=== PATIENT | female | born 1930 | race Caucasian/White ===

== ENCOUNTER 2018-12-20 10:29 | Emergency (ER) | payer OTHER ==
[2018-12-20 12:12] VITALS: TEMP 98.3; BMI 19.5
--- NOTE | 2018-12-20 12:26 | PDOC ---
History of Present Illness - General Stated Complaint: R/O STONES,AMS Time Seen by Provider: 12/20/18 11:02 History Source: Family Exam Limitations: Dementia - History of Present Illness Initial Comments: 12/20/18 12:17 88YOF with h/o dementia, recurrent UTI (usually gets ciprofloxacin), HLD, HTN, vertigo (on meclizine), esophageal internal bleeding which was tx with a botox injection 2 years ago without recurrence, HYST back in the , and knee replacement, and Seroquel use for nighttime agitation, who was BIBEMS from [facility] for failed outpatient therapy for UTI now with c/f bilateral renal stones and e/o renal dysfunction as found on US this morning at [facility]. She has had UTI sxs for the past 3 weeks (tx with an unknown antibiotic, then switched to Levaquin yesterday). Patient's history was taken entirely from her granddaughter Jessica (HCP) at [phone], as the patient is oriented only to her own name. The granddaughter notes that the patient has no advance directive on file that they know of. She notes that the family including HCP would be uncomfortable with lithotripsy or any surgical procedure. Past History - Past Medical History Allergies/Adverse Reactions: Allergies Allergy/AdvReac Type Severity Reaction Status Date / Time No Known Allergies Allergy Verified 12/20/18 12:09 COPD: No Dementia: Yes - Psycho Social/Smoking Cessation Hx Smoking History: Never smoked Have you smoked in the past 12 months: No Information on smoking cessation initiated: No Hx Alcohol Use: No Drug/Substance Use Hx: No Review of Systems - Review of Systems Able to Perform ROS?: No (dementia) *Physical Exam - Vital Signs Last Vital Signs Temp Pulse Resp BP Pulse Ox 98.3 F 95 H 18 102/49 L 95 12/20/18 10:30 12/20/18 10:30 12/20/18 10:30 12/20/18 10:30 12/20/18 10:30 - Physical Exam Comments: GENERAL: elderly, a bit frail, nontoxic-appearing, sleepy, A/Ox1 (self), no distress, confused, later trying to get up from bed repeatedly for trips to and from the bathroom HEENT: PERRLA, EOMI, moist mucous membranes NECK/BACK: no midline ttp, no spinal stepoff or deformity, no hematoma, full ROM , neck supple CARDIOVASCULAR: regular rate/rhythm, normal S1S2, no MGR, strong peripheral pulses, capillary refill <2 seconds, extremities wwp, no edema LUNGS/RESPIRATORY: no respiratory distress, CTAB GI/ABDOMEN: symmetric [id number], normoactive BS, soft, moderate BLQ ttp, no midline pulsatile masses : no CVA tenderness EXTREMITIES: no acute deformity, no new bruising SKIN: warm and dry, no pallor, no jaundice, no rash, no bruising, no skin breakdown, no cuts, no lesions NEUROLOGICAL: GCS 15, CN II-XII grossly intact, 5/5 strength proximally and distally, no facial droop ED Treatment Course - LABORATORY CBC & Chemistry Diagram: 12/20/18 13:51 12/20/18 12:27 Medical Decision Making - Medical Decision Making 12/20/18 13:02 88YOF with recurrent UTI and dementia p/w painful urination for >3 weeks, failed OP abx course, now found with e/o renal dysfuction and b/l renal stones on US this AM. Initial Vital Signs Temp Pulse Resp BP Pulse Ox 98.3 F 95 H 18 102/49 L 95 12/20/18 10:30 12/20/18 10:30 12/20/18 10:30 12/20/18 10:30 12/20/18 10:30 Exam: As noted in Physical Exam section. DDX IBNLT: UTI, pyelonephritis, cervicitis, PID, TOA, other STD/STI, vaginal lesion, vulvuvaginal candidiasis, interstitial cystitis, neurogenic bladder, renal colic, obstructive uropathy, ectopic, ovarian torsion, ovarian cyst, endometritis, malignancy, hernia, appendicitis, proctitis, sigmoid diverticulitis wwo abscess or perforation, endometriosis, primary dysmenorrhea, etc. W/U ordered: Labs as noted below, EKG, CXR, TX ordered: 0.5mg Xanax PO as patient is agitated and granddaughter states she gets this in the hospital for agitation all the time. Laboratory Tests 12/20/18 12/20/18 12:27 13:51 WBC 6.4 RBC 3.16 L Hgb 9.8 L Hct 29.9 L MCV 94.7 MCH 30.9 MCHC 32.6 RDW 14.7 Plt Count 262 MPV 6.7 L Absolute Neuts (auto) 5.0 Neutrophils % 78.4 Lymphocytes % 13.4 Monocytes % 5.9 Eosinophils % 1.6 Basophils % 0.7 Nucleated RBC % 0 Sodium 137 Potassium 4.5 Chloride 103 Carbon Dioxide 27 Anion Gap 8 BUN 45.2 H Creatinine 2.3 H Est GFR (CKD-EPI)AfAm 21.13 Est GFR (CKD-EPI)NonAf 18.23 Random Glucose 115 H Calcium 9.4 Total Bilirubin 0.3 AST 13 L ALT 13 Alkaline Phosphatase 70 Total Protein 6.8 Albumin 2.6 L Patient is unable to sit still for spiral CT, needs to be brought back to the ED. She has already gotten Xanax toward the beginning of this visit. She will be given IM dose ketamine at 4 mg/kg, which is low side of normal range for procedural sedation/analgesia. Immediately after given this IM ketamine she will get her spiral CT and have urine cath for sample. Patient was given IM ketamine with partial improvement in her agitation. Straight cath, pelvic exam, and CT completed after ketamine administration. Pelvic with mild labia minora skin breakdown with tenderness, moderate foul- smelling vaginal discharge, no e/o trauma, no bruising, cervix cannot be visualized. GC/Chlamydia swabs sent. CT/ABDOMEN PELVIS CT W/O CONTR Abdomen and pelvis CT without contrast Clinical information: pelvic infection, abdominal pain Multiplanar imaging was performed. No intravenous or enteric contrast was administered. No prior imaging studies are available at this facility for direct comparison. There is no evidence of pneumoperitoneum, free intraperitoneal fluid or bowel obstruction. Diffuse concentric urinary bladder wall thickening is seen which may be on the basis of acute and/ or chronic cystitis. A small amount of air is seen within the urinary bladder lumen which may be on the basis of recent catheterization versus gas-forming infection. Clinical/laboratory correlation is suggested. Note is also made of several small densities within the urinary bladder lumen probably representing calculi. The planes surrounding the urinary bladder appear to be somewhat indistinct which may be on the basis of inflammation/infection, less likely neoplastic disease. There is also equivocal concentric wall thickening along the expected course of the urethra. Absent versus atrophic uterus. There is no obvious CT evidence of adnexal pathology. Mild nonspecific subcutaneous soft tissue stranding is seen along the peritoneum bilaterally. No soft tissue air/gas accumulation is visualized. Direct comparison with prior imaging studies would be helpful if available from a different facility. Multiple gallbladder calculi are noted. There is moderate gallbladder overdistention without obvious associated wall edema. No pericholecystic edema/fluid is visualized. There is no definite biliary tract dilatation. There is no hydronephrosis. 0.7 x 0.2 cm nonobstructing right renal calculus. Left renal atrophy (7.4 cm length). 5 cm left renal cortical cyst. The liver, pancreas, and right adrenal gland demonstrate no obvious noncontrast pathology. 5 cm left renal cortical cyst. There is no aortic aneurysm. No definite lymphadenopathy is seen. 1.3 cm left adrenal nodule probably representing an adenoma. 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 There is no splenic enlargement. The appendix is partially visualized and demonstrates no definite abnormality. No CT evidence of acute diverticulitis or obvious acute colitis. There is no gross noncontrast small bowel pathology. Surgical clips/sutures are noted along the anterior pelvic wall. Diffuse osteoporosis. IMPRESSION: Diffuse urinary bladder wall thickening is seen possibly on the basis of acute and/or chronic cystitis. A small amount of nonspecific air accumulation is noted within the urinary bladder which may be due to recent catheterization versus gas-forming infection. Clinical/laboratory correlation is suggested. The perivesical soft tissue planes appear to be somewhat indistinct on this noncontrast study which may be on the basis of acute inflammation/infection, less likely neoplastic disease. Small urinary bladder calculi. 0.7 x 0.2 cm nonobstructing right renal calculus. Left renal atrophy. There is equivocal concentric wall thickening along the expected course of the urethra. Mild nonspecific subcutaneous soft tissue stranding is seen along the peritoneum bilaterally which may be chronic or acute in nature. Correlate clinically. Absent versus atrophic uterus. Cholelithiasis. Moderate gallbladder overdistention is seen without definite CT evidence of acute cholecystitis. Early acute cholecystitis may not be demonstrable on CT. I spoke with Dr. Morales, the patient's PCP, who is updated on all results. He is most comfortable with her being treated for PID, vulvovaginal candidiasis , and UTI first dose abx and then being managed by him at her facility. Patient is given IM ceftriaxone and dose doxycycline as well as 200 mg Diflucan as she does have vaginal discharge and skin breakdown. On last reassessment, pain is reasonably controlled, and exam is benign. This patient is appropriate for discharge with close outpatient follow up. The SNF is comfortable with this plan and will follow up with their PCP at the facility. Specific return precautions are discussed and written in discharge instructions and they will come back to the ER if necessary. Discharge - Discharge Information Problems reviewed: Yes Clinical Impression/Diagnosis: Pelvic inflammatory disease (PID), Vulvovaginal candidiasis UTI (urinary tract infection) Qualifiers: Urinary tract infection type: acute cystitis Hematuria presence: with hematuria Qualified Code(s): N30.01 - Acute cystitis with hematuria Condition: Stable Disposition: [facility] - Admission No - Follow up/Referral Referrals: Melly Martinez MD [Primary Care Provider] - - Patient Discharge Instructions Additional Instructions: Dear Ms. Carter and family, Dr. Morales, and [facility] Staff: We provided care for Ms. Carter in the ED today. We are enclosing her blood work and CT abdomen/pelvis results. We were only able to collect a tiny urine sample with the straight catheter, and we decided since she already is known to have a UTI, this tiny sample would be best used to obtain updated catheterized cultures. The results will be back in a couple of days. We also did her pelvic exam which did show the discharge you mentioned. We sent a sample for gonorrhea/ chlamydia testing and the results should be complete in a couple of days as well. On the pelvic exam, we noted there was skin breakdown to the inner labia minora with a small amount of associated bleeding and moderate tenderness to even light palpation, so this seems to be very painful. We needed to give her a dose of PO Xanax to help her stay calm at the beginning of her visit. We needed to give her a small dose of IM ketamine to calm her down for the CT abdomen/pelvis, pelvic exam, and straight cath. The additional medications we gave her in the ED are as follows: Ceftriaxone 250 mg IM once for PID Doxycycline 100 mg PO once for PID (the first dose of a presumed 14 day, BID course of PO doxycycline 100mg) Fluconazole 200 mg PO once Please continue treating her UTI per Dr. Morales's orders, and you can check back with [facility] in a couple of days when the urine culture and GC/Chlamydia results are back. Thank you! - Post Discharge Activity
[2018-12-20] MEDS ORDERED: SODIUM CHLORIDE 0.9% 500 ML INFUS.BAG IV ONE (12:27)
[2018-12-20] MEDS ORDERED: ALPRAZolam 1 MG TABLET PO PRN ×2 (12:27→13:14)
[2018-12-20] MEDS ORDERED: ALPRAZolam 0.25 MG TABLET ONE (13:17)
--- NOTE | 2018-12-20 14:01 | PDOC ---
Attending Attestation - Resident Resident Name: Winston,Alta - ED Attending Attestation I have performed the following: I have examined & evaluated the patient, The case was reviewed & discussed with the resident, I agree w/resident's findings & plan - HPI HPI: 12/20/18 13:51 88y/o F h/o dementia from NH with recent abx for UTI now sent for persistent lower abd discomfort. no measured fevers, recently switched from macrobid 3 weeks ago, completed course. Repeat UA 3d ago c/w UTI, started on levaquin, sensitivities unknown. renal/bladder u/s showed renal stones, ? results of pelvic u/s - Physicial Exam PE: 12/20/18 13:53 vss alert, nad, demented but ambulatory with assistance atraumatic s1s2, ctab abd soft but suprapubic discomfort to palpation, no guarding/rebound. neuro nonfocal, 5/5 strength - Medical Decision Making 12/20/18 13:54 88y/o F with ongoing urinary complaints and pelvic pain. ? resistant UTI, ? pyelo. r/o superimposed obstructing stone. labs, ua, ucx f/u study and cx results from [facility] reassess, dispo accordingly 12/20/18 16:26 labs wnl. d/w sending physician, clarified sent to ED for CTAP and pelvic exam/cxs. They will continue to manage UTI and abx. pt required ketamine for procedure, will send pelvic cxs, perform ctap, and dispo accordingly. If no acute interventions needed, can go back to [facility] for continued care.
[2018-12-20 14:02] LABS: BASO % 0.7 % (0-2.0); EOS % 1.6 % (0-4.5); HEMATOCRIT 29.9 % (32.4-45.2); HEMOGLOBIN 9.8 GM/dL (10.7-15.3); LYMPH % 13.4 % (8-40); MCH 30.9 pg (25.7-33.7); MCHC 32.6 g/dl (32.0-36.0); MEAN CELL VOLUME 94.7 fl (80-96); MEAN PLT VOLUME 6.7 fl (7.5-11.1); MONO % 5.9 % (3.8-10.2); NEUT % 78.4 % (42.8-82.8); PLATELET COUNT 262 K/MM3 (134-434); RBC 3.16 M/mm3 (3.60-5.2); RDW 14.7 % (11.6-15.6); WHITE BLOOD COUNT 6.4 K/mm3 (4.0-10.0)
[2018-12-20 14:32] LABS: ALBUMIN 2.6 g/dl (3.4-5.0); BILIRUBIN,TOTAL 0.3 mg/dL (0.2-1); BLOOD UREA NITROGEN 45.2 mg/dL (7-18); CALCIUM 9.4 mg/dL (8.5-10.1); CREATININE 2.3 mg/dL (0.55-1.3); POTASSIUM 4.5 mmol/L (3.5-5.1); TOT PROT 6.8 g/dl (6.4-8.2)
[2018-12-20] MEDS ORDERED: KETAMINE HCL 500 MG/10 ML VIAL IM ONE (15:26)
[2018-12-20] MEDS ORDERED: KETAMINE HCL 200 MG/20 ML VIAL ONE (15:44)
[2018-12-20] MEDS ORDERED: FLUCONAZOLE 100 MG TABLET (UD) PO ONE (17:05)
[2018-12-20] MEDS ORDERED: DOXYCYCLINE HYCLATE 100 MG CAPSULE PO ONE ×2 (17:46→19:13)
[2018-12-20] MEDS ORDERED: FLUCONAZOLE 100 MG TABLET (UD) ONE (19:12)
[2018-12-20] MEDS ORDERED: cefTRIAXone SODIUM 1 GM VIAL ONE (19:13)
[2018-12-20 20:34] VITALS: BP 123/61; PULSE 89
== END 2018-12-20 20:35 ==
LOC: JER 10:29
PROC: 3E0337Z Introduction of Electrolytic and Water Balance Substance into Peripheral Vein, Percutaneous Approach (ICD-10-PCS; principal; 2018-12-20)
PROC: 3E033NZ Introduction of Analgesics, Hypnotics, Sedatives into Peripheral Vein, Percutaneous Approach (ICD-10-PCS; 2018-12-20)
PROC: 3E033GC Introduction of Other Therapeutic Substance into Peripheral Vein, Percutaneous Approach (ICD-10-PCS; 2018-12-20)
DX: E78.5 Hyperlipidemia, unspecified (principal); R42 Dizziness and giddiness; F03.90 Unspecified dementia, unspecified severity, without behavioral disturbance, psychotic disturbance, mood disturbance, and anxiety
CPT/HCPCS: 36415; 74176-TC; 80053; 85025; 87491; 87591; 96372; 99283-25